=== PATIENT | male | born 1935 | race Caucasian/White ===

== ENCOUNTER 2020-07-15 11:13 | Inpatient (IN) | payer BC, OTHER ==
[2020-07-15] MEDS ORDERED: DEXAMETHASONE SOD PHOSPHATE 10 MG/1 ML VIAL ONE (12:37)
[2020-07-15 12:38] LABS: BASO % 0.5 % (0-2.0); EOS % 0.2 % (0-4.5); HEMATOCRIT 46.6 % (35.4-49); HEMOGLOBIN 15.6 GM/dL (11.7-16.9); LYMPH % 17.1 % (8-40); MCH 30.5 pg (25.7-33.7); MCHC 33.4 g/dl (32.0-35.9); MEAN CELL VOLUME 91.2 fl (80-96); MEAN PLT VOLUME 10.1 fl (7.5-11.1); MONO % 9.8 % (3.8-10.2); NEUT % 72.4 % (42.8-82.8); PLATELET COUNT 108 K/MM3 (134-434); RBC 5.12 M/mm3 (4.00-5.60); RDW 14.6 % (11.9-15.9); WHITE BLOOD COUNT 3.4 K/mm3 (4.0-10.0)
[2020-07-15] MEDS ORDERED: AZITHROMYCIN IVPB 500 MG in DEXTROSE 5%-WATER - 250 ML IVPB ONE (12:59)
[2020-07-15] MEDS ORDERED: CEFTRIAXONE 1,000 MG in DEXTROSE 5%-WATER - 50 ML IVPB ONE (12:59)
[2020-07-15 13:02] LABS: POTASSIUM 3.9 mmol/L (3.5-5.1)
[2020-07-15 13:04] LABS: ALBUMIN 3.2 g/dl (3.4-5.0); BLOOD UREA NITROGEN 18.2 mg/dL (7-18); MAGNESIUM 1.8 mg/dL (1.8-2.4)
[2020-07-15 13:06] LABS: VENOUS BASE EXCESS -4.4 mmol/L (-2-2); VENOUS O2 SATURATION 59.8 % (70-80); VENOUS PCO2 42.1 mmHg (38-52); VENOUS PH 7.324 (7.310-7.410)
[2020-07-15 13:09] LABS: BILIRUBIN,TOTAL 1.1 mg/dL (0.2-1); TOT PROT 6.7 g/dl (6.4-8.2)
[2020-07-15 13:15] LABS: INR 1.19 (0.83-1.09); PROTHROMBIN TIME (PATIENT) 14.6 SEC (9.7-13.0)
[2020-07-15 13:18] LABS: ACTIVATED PTT 34.5 SECONDS (25.2-36.5)
[2020-07-15] MEDS ORDERED: DEXAMETHASONE SOD PHOSPHATE 10 MG/1 ML VIAL IVPUSH ONE (13:20)
[2020-07-15] MEDS ORDERED: AZITHROMYCIN IVPB 500 MG/250 ML BAG IVPB ONE (13:21)
[2020-07-15] MEDS ORDERED: CEFTRIAXONE 1 GM/50 ML BAG ONE (13:21)
[2020-07-15 13:38] LABS: LACTIC ACID 2.4 mmol/L (0.4-2.0)
[2020-07-15 14:15] LABS: URINE APPEARANCE Clear; URINE BILIRUBIN Negative (NEGATIVE); URINE COLOR Yellow; URINE GLUCOSE (UA) Negative (NEGATIVE); URINE KETONE Negative (NEGATIVE); URINE LEUK ESTERASE 1+ (NEGATIVE); URINE NITRITE Positive (NEGATIVE); URINE PROTEIN 2+ (NEGATIVE); URINE UROBILINOGEN 0.2 mg/dL (0.2-1.0)
[2020-07-15 14:26] LABS: EPI CELLS 2.2 /uL (0-25.1); URINE RBC 488.6 /uL (0-23.9); URINE WBC 781.3 /uL (0-25.8)
[2020-07-15 14:27] LABS: URINE BACTERIA 7949 /uL (0-1359); YEAST NON SEEN (NEGATIVE)
[2020-07-15 21:03] LABS: BILIRUBIN,DIRECT 0.3 mg/dL (0.0-0.2)
[2020-07-15 21:15] LABS: LDH 334 U/L (87-246)
[2020-07-15 21:46] LABS: LACTIC ACID 2.1 mmol/L (0.4-2.0)
[2020-07-15] MEDS: HEPARIN NA (PORCINE) 5,000 UNITS/ML 1ML VIAL SQ SCH (22:51)
[2020-07-16] MEDS: HEPARIN NA (PORCINE) 5,000 UNITS/ML 1ML VIAL SQ SCH ×3 (06:52→21:13)
[2020-07-16 08:35] LABS: BASO % 0.6 % (0-2.0); HEMATOCRIT 47.2 % (35.4-49); HEMOGLOBIN 15.9 GM/dL (11.7-16.9); LYMPH % 21.7 % (8-40); MCH 30.6 pg (25.7-33.7); MCHC 33.6 g/dl (32.0-35.9); MEAN PLT VOLUME 10.2 fl (7.5-11.1); MONO % 14.6 % (3.8-10.2); NEUT % 63.1 % (42.8-82.8); PLATELET COUNT 105 K/MM3 (134-434); RBC 5.18 M/mm3 (4.00-5.60); RDW 14.8 % (11.9-15.9); WHITE BLOOD COUNT 2.9 K/mm3 (4.0-10.0)
[2020-07-16 08:49] LABS: POTASSIUM 3.7 mmol/L (3.5-5.1)
[2020-07-16 08:57] LABS: BLOOD UREA NITROGEN 16.8 mg/dL (7-18); CALCIUM 8.4 mg/dL (8.5-10.1)
[2020-07-16 08:58] LABS: ALBUMIN 3.1 g/dl (3.4-5.0)
[2020-07-16 09:01] LABS: CREATININE 0.8 mg/dL (0.55-1.3); PHOSPHOROUS 3.2 mg/dL (2.5-4.9)
[2020-07-16 09:02] LABS: BILIRUBIN,TOTAL 0.8 mg/dL (0.2-1)
[2020-07-16 09:03] LABS: TOT PROT 6.4 g/dl (6.4-8.2)
[2020-07-16] MEDS ORDERED: PT OWN MED DRAWER 7, Y5N ONE (09:06)
[2020-07-16] MEDS ORDERED: PIPERACILLIN/TAZOB 4.5 GM 4.5 GM in DEXTROSE 5%-WATER 100 ML IVPB SCH (09:45)
[2020-07-16] MEDS: FINASTERIDE 5 MG TABLET (FP) PO SCH (10:16)
[2020-07-16] MEDS: ISOSORBIDE MONONITRATE 60 MG TAB.SR.24H (FP) PO SCH (10:16)
[2020-07-16] MEDS: amLODIPine BESYLATE 10 MG TABLET (FP) PO SCH (10:16)
[2020-07-16] MEDS: PIPERACILLIN/TAZOB 4.5 GM 4.5 GM in DEXTROSE 5%-WATER 100 ML IVPB SCH ×3 (10:34→21:12)
[2020-07-16] MEDS: DEXAMETHASONE 4 MG TABLET (FP) PO SCH (11:34)
[2020-07-16] MEDS: guaiFENesin 600 MG TABLET.ER (FP) PO SCH ×2 (11:34→22:26)
[2020-07-16] MEDS ORDERED: DEXTROSE 5%-WATER 100 ML IVPB ONE ×3 (11:35→20:56)
[2020-07-16] MEDS ORDERED: PIPERACILLIN/TAZOBACTAM 4.5 GM VIAL IVPB ONE ×3 (11:35→20:56)
[2020-07-16] MEDS: ACETAMINOPHEN 325 MG TABLET (FP) PO PRN (18:24)
[2020-07-17] MEDS ORDERED: PIPERACILLIN/TAZOBACTAM 4.5 GM VIAL IVPB ONE ×2 (02:01→10:43)
[2020-07-17] MEDS ORDERED: DEXTROSE 5%-WATER 100 ML IVPB ONE ×2 (02:01→10:43)
[2020-07-17] MEDS: PIPERACILLIN/TAZOB 4.5 GM 4.5 GM in DEXTROSE 5%-WATER 100 ML IVPB SCH ×2 (02:11→10:45)
[2020-07-17] MEDS: HEPARIN NA (PORCINE) 5,000 UNITS/ML 1ML VIAL SQ SCH ×3 (06:39→21:10)
[2020-07-17] MEDS ORDERED: INSULIN (NOVOLOG) ASPART 100 UNITS/ML 10ML VIAL ONE (06:43)
[2020-07-17 09:38] LABS: BASO % 0.3 % (0-2.0); HEMATOCRIT 45.3 % (35.4-49); HEMOGLOBIN 15.7 GM/dL (11.7-16.9); LYMPH % 20.9 % (8-40); MCH 31.2 pg (25.7-33.7); MCHC 34.6 g/dl (32.0-35.9); MEAN CELL VOLUME 90.1 fl (80-96); MEAN PLT VOLUME 10.7 fl (7.5-11.1); NEUT % 70.8 % (42.8-82.8); PLATELET COUNT 105 K/MM3 (134-434); RBC 5.03 M/mm3 (4.00-5.60); WHITE BLOOD COUNT 4.1 K/mm3 (4.0-10.0)
[2020-07-17 10:11] LABS: POTASSIUM 3.6 mmol/L (3.5-5.1)
[2020-07-17 10:19] LABS: ALBUMIN 3.3 g/dl (3.4-5.0); BLOOD UREA NITROGEN 23.3 mg/dL (7-18); CALCIUM 8.1 mg/dL (8.5-10.1)
[2020-07-17 10:22] LABS: CREATININE 0.9 mg/dL (0.55-1.3)
[2020-07-17 10:23] LABS: PHOSPHOROUS 3.1 mg/dL (2.5-4.9)
[2020-07-17 10:24] LABS: TOT PROT 6.8 g/dl (6.4-8.2)
[2020-07-17] MEDS ORDERED: PT OWN MED DRAWER 7, Y5N ONE (10:43)
[2020-07-17] MEDS: CARBIDOPA/LEVODOPA 25/100 TABLET (FP) PO SCH ×2 (10:45→11:02)
[2020-07-17] MEDS: DEXAMETHASONE 4 MG TABLET (FP) PO SCH (10:50)
[2020-07-17] MEDS: amLODIPine BESYLATE 10 MG TABLET (FP) PO SCH (10:50)
[2020-07-17] MEDS: guaiFENesin 600 MG TABLET.ER (FP) PO SCH ×2 (10:50→21:10)
[2020-07-17] MEDS: ISOSORBIDE MONONITRATE 60 MG TAB.SR.24H (FP) PO SCH (10:50)
[2020-07-17] MEDS: FINASTERIDE 5 MG TABLET (FP) PO SCH (10:51)
[2020-07-17] MEDS ORDERED: REMDESIVIR 200 MG in SODIUM CHLORIDE 210 ML IVPB ONE (12:30)
[2020-07-18] MEDS: HEPARIN NA (PORCINE) 5,000 UNITS/ML 1ML VIAL SQ SCH ×3 (06:44→21:37)
[2020-07-18 09:00] LABS: POTASSIUM 3.5 mmol/L (3.5-5.1)
[2020-07-18 09:03] LABS: ALBUMIN 3.1 g/dl (3.4-5.0); BLOOD UREA NITROGEN 30.2 mg/dL (7-18)
[2020-07-18 09:06] LABS: CREATININE 0.8 mg/dL (0.55-1.3)
[2020-07-18 09:07] LABS: PHOSPHOROUS 2.5 mg/dL (2.5-4.9)
[2020-07-18 09:08] LABS: BILIRUBIN,TOTAL 0.7 mg/dL (0.2-1); TOT PROT 6.4 g/dl (6.4-8.2)
[2020-07-18 09:15] LABS: BASO % 0.4 % (0-2.0); HEMATOCRIT 43.8 % (35.4-49); HEMOGLOBIN 14.9 GM/dL (11.7-16.9); LYMPH % 25.9 % (8-40); MCH 30.6 pg (25.7-33.7); MEAN CELL VOLUME 89.8 fl (80-96); MEAN PLT VOLUME 10.7 fl (7.5-11.1); MONO % 10.2 % (3.8-10.2); NEUT % 63.5 % (42.8-82.8); PLATELET COUNT 108 K/MM3 (134-434); RBC 4.88 M/mm3 (4.00-5.60); RDW 14.9 % (11.9-15.9); WHITE BLOOD COUNT 3.2 K/mm3 (4.0-10.0)
[2020-07-18] MEDS ORDERED: PT OWN MED DRAWER 7, Y5N ONE (09:26)
[2020-07-18] MEDS: amLODIPine BESYLATE 10 MG TABLET (FP) PO SCH (10:15)
[2020-07-18] MEDS: CARBIDOPA/LEVODOPA 25/100 TABLET (FP) PO SCH (10:15)
[2020-07-18] MEDS: guaiFENesin 600 MG TABLET.ER (FP) PO SCH ×2 (10:15→21:37)
[2020-07-18] MEDS: ISOSORBIDE MONONITRATE 60 MG TAB.SR.24H (FP) PO SCH (10:15)
[2020-07-18] MEDS: FINASTERIDE 5 MG TABLET (FP) PO SCH (10:15)
[2020-07-18] MEDS: DEXAMETHASONE 4 MG TABLET (FP) PO SCH (10:16)
[2020-07-18] MEDS: REMDESIVIR 100 MG in SODIUM CHLORIDE 230 ML IVPB SCH (13:02)
[2020-07-19] MEDS: HEPARIN NA (PORCINE) 5,000 UNITS/ML 1ML VIAL SQ SCH ×3 (06:14→21:05)
[2020-07-19 09:57] LABS: POTASSIUM 3.9 mmol/L (3.5-5.1)
[2020-07-19 10:06] LABS: ALBUMIN 3.1 g/dl (3.4-5.0); BLOOD UREA NITROGEN 39.9 mg/dL (7-18); CALCIUM 8.4 mg/dL (8.5-10.1); CREATININE 0.9 mg/dL (0.55-1.3)
[2020-07-19 10:08] LABS: BILIRUBIN,TOTAL 1.1 mg/dL (0.2-1); TOT PROT 6.5 g/dl (6.4-8.2)
[2020-07-19] MEDS ORDERED: PT OWN MED DRAWER 7, Y5N ONE ×2 (10:34→11:59)
[2020-07-19] MEDS: amLODIPine BESYLATE 10 MG TABLET (FP) PO SCH (10:38)
[2020-07-19] MEDS: ISOSORBIDE MONONITRATE 60 MG TAB.SR.24H (FP) PO SCH (10:38)
[2020-07-19] MEDS: DEXAMETHASONE 4 MG TABLET (FP) PO SCH (10:38)
[2020-07-19] MEDS: guaiFENesin 600 MG TABLET.ER (FP) PO SCH ×2 (10:39→21:05)
[2020-07-19] MEDS: FINASTERIDE 5 MG TABLET (FP) PO SCH (10:39)
[2020-07-19] MEDS: CARBIDOPA/LEVODOPA 25/100 TABLET (FP) PO SCH (10:40)
[2020-07-19] MEDS: REMDESIVIR 100 MG in SODIUM CHLORIDE 230 ML IVPB SCH (13:46)
[2020-07-20] MEDS: HEPARIN NA (PORCINE) 5,000 UNITS/ML 1ML VIAL SQ SCH ×3 (05:28→21:43)
[2020-07-20] MEDS ORDERED: PT OWN MED DRAWER 7, Y5N ONE (09:21)
[2020-07-20] MEDS: CARBIDOPA/LEVODOPA 25/100 TABLET (FP) PO SCH (09:22)
[2020-07-20] MEDS: FINASTERIDE 5 MG TABLET (FP) PO SCH (09:22)
[2020-07-20] MEDS: metoPROLOL SUCCINATE 25 MG TAB.SR.24H (FP) PO SCH (09:23)
[2020-07-20] MEDS: ACETAMINOPHEN 325 MG TABLET (FP) PO PRN (09:23)
[2020-07-20] MEDS: guaiFENesin 600 MG TABLET.ER (FP) PO SCH ×2 (09:23→21:43)
[2020-07-20] MEDS: ISOSORBIDE MONONITRATE 60 MG TAB.SR.24H (FP) PO SCH (09:23)
[2020-07-20] MEDS: amLODIPine BESYLATE 10 MG TABLET (FP) PO SCH (09:23)
[2020-07-20] MEDS: DEXAMETHASONE 4 MG TABLET (FP) PO SCH (09:24)
[2020-07-20 09:45] LABS: BASO % 0.2 % (0-2.0); HEMATOCRIT 44.1 % (35.4-49); HEMOGLOBIN 14.9 GM/dL (11.7-16.9); LYMPH % 33.8 % (8-40); MCH 30.6 pg (25.7-33.7); MCHC 33.8 g/dl (32.0-35.9); MEAN CELL VOLUME 90.6 fl (80-96); MEAN PLT VOLUME 10.6 fl (7.5-11.1); MONO % 12.5 % (3.8-10.2); NEUT % 53.5 % (42.8-82.8); PLATELET COUNT 121 K/MM3 (134-434); RBC 4.87 M/mm3 (4.00-5.60); RDW 14.8 % (11.9-15.9); WHITE BLOOD COUNT 2.6 K/mm3 (4.0-10.0)
[2020-07-20 10:10] LABS: POTASSIUM 3.9 mmol/L (3.5-5.1)
[2020-07-20 10:22] LABS: ALBUMIN 2.9 g/dl (3.4-5.0); BLOOD UREA NITROGEN 33.3 mg/dL (7-18)
[2020-07-20 10:23] LABS: MAGNESIUM 2.2 mg/dL (1.8-2.4)
[2020-07-20 10:25] LABS: BILIRUBIN,TOTAL 0.7 mg/dL (0.2-1); CREATININE 0.8 mg/dL (0.55-1.3); PHOSPHOROUS 2.6 mg/dL (2.5-4.9); TOT PROT 6.1 g/dl (6.4-8.2)
[2020-07-20] MEDS: REMDESIVIR 100 MG in SODIUM CHLORIDE 230 ML IVPB SCH (13:32)
[2020-07-21] MEDS: HEPARIN NA (PORCINE) 5,000 UNITS/ML 1ML VIAL SQ SCH ×3 (06:44→21:19)
[2020-07-21 08:44] LABS: BASO % 0.1 % (0-2.0); HEMATOCRIT 44.8 % (35.4-49); HEMOGLOBIN 15.5 GM/dL (11.7-16.9); MCH 30.8 pg (25.7-33.7); MCHC 34.5 g/dl (32.0-35.9); MEAN CELL VOLUME 89.4 fl (80-96); MEAN PLT VOLUME 10.5 fl (7.5-11.1); NEUT % 60.9 % (42.8-82.8); PLATELET COUNT 133 K/MM3 (134-434); RBC 5.01 M/mm3 (4.00-5.60); RDW 14.6 % (11.9-15.9); WHITE BLOOD COUNT 3.1 K/mm3 (4.0-10.0)
[2020-07-21 09:08] LABS: CHLORIDE 105 mmol/L (98-107); POTASSIUM 3.9 mmol/L (3.5-5.1); SODIUM 138 mmol/L (136-145)
[2020-07-21 09:17] LABS: CALCIUM 8.1 mg/dL (8.5-10.1)
[2020-07-21 09:18] LABS: ALBUMIN 3.2 g/dl (3.4-5.0); ANION GAP 5 MMOL/L (8-16); BILIRUBIN,TOTAL 1.1 mg/dL (0.2-1); BLOOD UREA NITROGEN 26.2 mg/dL (7-18); CO2 28 mmol/L (21-32); GLUCOSE,RANDOM 96 mg/dL (74-106); MAGNESIUM 2.1 mg/dL (1.8-2.4); SGPT/ALT 61 U/L (13-61); TOT PROT 6.6 g/dl (6.4-8.2)
[2020-07-21 09:19] LABS: ALK PHOS 88 U/L (45-117)
[2020-07-21 09:20] LABS: CREATININE 0.6 mg/dL (0.55-1.3); PHOSPHOROUS 2.2 mg/dL (2.5-4.9); SGOT/AST 43 U/L (15-37)
[2020-07-21] MEDS: amLODIPine BESYLATE 10 MG TABLET (FP) PO SCH (10:51)
[2020-07-21] MEDS: FINASTERIDE 5 MG TABLET (FP) PO SCH (10:51)
[2020-07-21] MEDS: CARBIDOPA/LEVODOPA 25/100 TABLET (FP) PO SCH (10:51)
[2020-07-21] MEDS: guaiFENesin 600 MG TABLET.ER (FP) PO SCH ×2 (10:51→21:19)
[2020-07-21] MEDS: metoPROLOL SUCCINATE 25 MG TAB.SR.24H (FP) PO SCH (10:51)
[2020-07-21] MEDS: ISOSORBIDE MONONITRATE 60 MG TAB.SR.24H (FP) PO SCH (10:51)
[2020-07-21] MEDS: REMDESIVIR 100 MG in SODIUM CHLORIDE 230 ML IVPB SCH (11:43)
[2020-07-22] MEDS: HEPARIN NA (PORCINE) 5,000 UNITS/ML 1ML VIAL SQ SCH (06:50)
[2020-07-22] MEDS ORDERED: PT OWN MED DRAWER 7, Y5N ONE (09:11)
[2020-07-22] MEDS: CARBIDOPA/LEVODOPA 25/100 TABLET (FP) PO SCH (09:46)
[2020-07-22] MEDS: guaiFENesin 600 MG TABLET.ER (FP) PO SCH (09:46)
[2020-07-22] MEDS: amLODIPine BESYLATE 10 MG TABLET (FP) PO SCH (09:46)
[2020-07-22] MEDS: ISOSORBIDE MONONITRATE 60 MG TAB.SR.24H (FP) PO SCH (09:46)
[2020-07-22] MEDS: metoPROLOL SUCCINATE 25 MG TAB.SR.24H (FP) PO SCH (09:46)
[2020-07-22] MEDS: FINASTERIDE 5 MG TABLET (FP) PO SCH (09:46)
[2020-07-22 11:23] VITALS: BMI 29.9
[2020-07-22 13:21] VITALS: BP 118/70; PULSE 60; TEMP 98.2
== END 2020-07-22 15:07 | disposition home health service (06) | DRG 177 ==
LOC: JER 11:13 → JERBED 16:02 → J6S 20:13
PROVIDERS: ADMIT Internal Medicine; ATTEND Internal Medicine
PROC: XW033E5 Introduction of Remdesivir Anti-infective into Peripheral Vein, Percutaneous Approach, New Technology Group 5 (ICD-10-PCS; principal; 2020-07-16)
PROC: XW13325 Transfusion of Convalescent Plasma (Nonautologous) into Peripheral Vein, Percutaneous Approach, New Technology Group 5 (ICD-10-PCS; 2020-07-16)
DX: U07.1 COVID-19 (principal); J96.01 Acute respiratory failure with hypoxia; J12.82 Pneumonia due to coronavirus disease 2019; N39.0 Urinary tract infection, site not specified; G20 Parkinson's disease; I10 Essential (primary) hypertension; E78.5 Hyperlipidemia, unspecified; N40.0 Benign prostatic hyperplasia without lower urinary tract symptoms; D69.6 Thrombocytopenia, unspecified; F17.210 Nicotine dependence, cigarettes, uncomplicated
CPT/HCPCS: 36415; 36430; 71045-TC-FY; 80053; 81003; 82248; 82550; 82728; 82803; 83605; 83615; 83735; 84100; 84484; 85025; 85379; 85610; 85730; 86140; 86769; 86850; 86900; 86901; 87040; 87086; 87186; 87804; 93005; 93010; 94761; 97116-GP; 97161-GP; 99285-25; C9399; C9803; J1100; J1644; P9017; U0003